=== PATIENT | female | born 1990 | race Caucasian/White ===

== ENCOUNTER 2019-07-12 09:58 | Outpatient (CLI) | payer BC ==
[2019-07-12] MEDS ORDERED: BUSP5TAB2 PO (14:31)
[2019-07-12] MEDS ORDERED: MULT-90 PO (14:31)
[2019-07-12] MEDS ORDERED: LEVO1TAB PO (14:31)
== END 2019-07-12 23:59 | disposition home or self-care (01) ==
LOC: STAR 09:58
PROVIDERS: ATTEND Obstetrics & Gynecology Female Pelvic Medicine and Reconstructive Surgery
DX: Z02.9 Encounter for administrative examinations, unspecified (principal)

== ENCOUNTER 2019-07-22 07:01 | Day surgery (SDC) | payer BC ==
[~2019-07-22] VITALS: Ht 160 cm; Wt 59.6 kg
[~2019-07-22 07:01] MED LIST: BUPIVACAINE/PF 0.25% ONE; BUPIVACAINE/PF 0.5% ONE; BUSP5TAB2 PO; EPINEPHRINE 1 MG/ML, 1ML ONE; LEVO1TAB PO; MULT-90 PO; NEOMY/POLYMYXIN B GU IRR. 1 ML ONE
[2019-07-22] MEDS ORDERED: LACTATED RINGERS 1,000 ML IV SCH (07:43)
[2019-07-22 07:44] VITALS: BP 126/86
[2019-07-22 07:54] LABS: HCG UR SG 1.015 (1.003-1.030)
[2019-07-22] MEDS ORDERED: ACETAMINOPHEN 500 MG TABLET PO ONE (08:00)
[2019-07-22] MEDS ORDERED: GABAPENTIN 300 MG CAPSULE PO ONE (08:00)
[2019-07-22] MEDS ORDERED: SCOPOLAMINE PATCH, 1.5MG PATCH.TD72 TD ONE (08:00)
[2019-07-22] MEDS ORDERED: FENTANYL PF 250 MCG/5ML ONE (08:01)
[2019-07-22] MEDS ORDERED: MIDAZOLAM 1 MG/ML, 2ML ONE (08:01)
[2019-07-22] MEDS ORDERED: KETOROLAC 30 MG/1 ML ONE ×2 (08:10)
[2019-07-22] MEDS ORDERED: CEFAZOLIN 1,000 MG ONE (08:10)
[2019-07-22] MEDS ORDERED: ROCURONIUM 10MG/ML,5ML ONE (08:10)
[2019-07-22] MEDS ORDERED: ONDANSETRON 2MG/ML, 2ML ONE (08:10)
[2019-07-22] MEDS ORDERED: NEOSTIGMINE 1 MG/ML, 10ML ONE (08:10)
[2019-07-22] MEDS ORDERED: PROPOFOL 10 MG/ML, 20ML ONE (08:10)
[2019-07-22] MEDS ORDERED: DEXAMETHASONE 4 MG/ML, 1ML ONE (08:10)
[2019-07-22] MEDS ORDERED: GLYCOPYRROLATE 0.2MG/1ML, 5ML ONE (08:10)
[2019-07-22] MEDS ORDERED: hydrALAzine 20 MG/ML, 1ML IV PRN (09:30)
[2019-07-22] MEDS ORDERED: HYDROmorphone 2 MG/ML, 1ML IVPush PRN (09:30)
[2019-07-22] MEDS ORDERED: PROMETHAZINE 25 MG/ML, 1ML IV PRN (09:30)
[2019-07-22] MEDS ORDERED: HALOPERIDOL 5 MG/ML IV PRN (09:30)
[2019-07-22] MEDS ORDERED: FENTANYL PF 100 MCG/2ML IV PRN (09:30)
[2019-07-22] MEDS ORDERED: MORPHINE SULFATE 4 MG/ML, 1ML IVPush PRN (09:30)
[2019-07-22] MEDS ORDERED: OXYcodone 5 MG/5 ML ORAL.SOL UDC PO PRN (09:30)
[2019-07-22] MEDS ORDERED: MEPERIDINE/PF 25MG/ML,1ML IVPush PRN (09:30)
[2019-07-22] MEDS ORDERED: LABETALOL 5MG/ML, 20ML IV PRN (09:30)
[2019-07-22] MEDS ORDERED: PHENYLEPHRINE 10 MG/ML ONE (09:35)
[2019-07-22] MEDS ORDERED: FENTANYL PF 100 MCG/2ML ONE (10:12)
[2019-07-22] MEDS ORDERED: FUROSEMIDE 20 MG/2 ML ONE (10:28)
[2019-07-22] MEDS ORDERED: MEPERIDINE/PF 25MG/ML,1ML ONE (11:10)
[2019-07-22] MEDS ORDERED: OXYcodone 5 MG/5 ML ORAL.SOL UDC ONE (11:30)
== END 2019-07-22 13:55 | disposition home or self-care (01) ==
LOC: OUT 07:01
PROVIDERS: ATTEND Obstetrics & Gynecology Female Pelvic Medicine and Reconstructive Surgery
DX: R10.2 Pelvic and perineal pain (principal); N94.6 Dysmenorrhea, unspecified; N80.3 Endometriosis of pelvic peritoneum; N94.10 Unspecified dyspareunia; N92.1 Excessive and frequent menstruation with irregular cycle; N81.89 Other female genital prolapse; N72 Inflammatory disease of cervix uteri; N83.01 Follicular cyst of right ovary; N81.5 Vaginal enterocele; N81.6 Rectocele; N81.11 Cystocele, midline; N39.3 Stress incontinence (female) (male); Z79.3 Long term (current) use of hormonal contraceptives; Z79.899 Other long term (current) drug therapy; Z98.890 Other specified postprocedural states
CPT/HCPCS: 57265; 57282; 57288; 58552; 81025; 88307; C1771; J0171; J0690; J1100; J1885; J1940; J2175; J2250; J2370; J2405; J2704; J2710; J3010; J3490; J7120